=== PATIENT | female | born 1970 | race Caucasian/White ===

== ENCOUNTER 2017-10-03 10:18 | Outpatient (CLI) | payer OTHER | END 2017-10-03 20:00 | disposition home or self-care (01) | LOC: SMA 10:18 | PROVIDERS: ATTEND Family Medicine | DX: Z12.31 Encounter for screening mammogram for malignant neoplasm of breast (principal) | CPT/HCPCS: 77067 ==

== ENCOUNTER 2017-10-11 07:55 | Outpatient (CLI) | payer OTHER | END 2017-10-11 16:39 | disposition home or self-care (01) | LOC: SMA 07:55 | DX: R92.8 Other abnormal and inconclusive findings on diagnostic imaging of breast (principal) | CPT/HCPCS: 77065 ==

== ENCOUNTER 2018-10-31 08:30 | Outpatient (CLI) | payer OTHER | END 2018-10-31 18:11 | disposition home or self-care (01) | LOC: SMA 08:30 | DX: Z12.31 Encounter for screening mammogram for malignant neoplasm of breast (principal) | CPT/HCPCS: 77067 ==

== ENCOUNTER 2020-05-26 08:10 | Outpatient (CLI) | payer OTHER | END 2020-05-26 20:31 | disposition home or self-care (01) | LOC: SMA 08:10 | PROVIDERS: ATTEND Family Medicine | DX: Z12.31 Encounter for screening mammogram for malignant neoplasm of breast (principal) | CPT/HCPCS: 77067 ==

== ENCOUNTER 2021-06-07 10:46 | Outpatient (CLI) | payer OTHER | END 2021-06-08 10:46 | disposition home or self-care (01) | LOC: SMA 10:46 | PROVIDERS: ATTEND Family Medicine | DX: Z12.31 Encounter for screening mammogram for malignant neoplasm of breast (principal) | CPT/HCPCS: 77067 ==